=== PATIENT | female | born 1980 | race Caucasian/White ===

== ENCOUNTER 2016-06-12 02:09 | Emergency (ER) | payer OTHER ==
[~2016-06-12] VITALS: Ht 165.1 cm; Wt 56.8 kg
[~2016-06-12 02:09] MED LIST: CHROMAGEN,1 CAPSULE PO; NOHOMEMEDS
[2016-06-12 02:12] VITALS: BP 108/70
[2016-06-12 02:46] LABS: EOSINOPHIL (%) 0.6 % (0-5); EOSINOPHIL COUNT 0.1 K/uL (0-0.3); HEMATOCRIT 36.7 % (36.0-46.0); IMMATURE GRANULOCYTE (%) 0.2 % (0.0-0.7); IMMATURE GRANULOCYTE COUNT 0.4 K/uL; LYMPHOCYTE COUNT 1.9 K/uL (1.0-2.8); MCH 29.1 PG (29.0-34.0); MCHC 34.1 G/DL (30.0-36.0); MCV 85.5 FL (83-99); MEAN PLAT.VOLUME 10.2 uM^3 (9.5-12.4); MONOCYTE (%) 4.7 % (3-12); MONOCYTE COUNT 0.8 K/uL (0-0.8); NEUTROPHIL (%) 82.4 % (45-76); NEUTROPHIL COUNT 13.3 K/uL (1.8-6.4); PLATELET COUNT 187 K/uL (156-360); RBC DIS.WIDTH-CV 12.7 % (11.8-14.6); RBC DIS.WIDTH-SD 38.7 % (39-53); RED BLOOD COUNT 4.29 M/uL (3.80-5.20); WHITE BLOOD COUNT 16.1 K/uL (4.1-10.2)
[2016-06-12 02:53] LABS: CHLORIDE 104 mEq/L (99-109); POTASSIUM 4.1 mEq/L (3.7-5.4); SODIUM 141 mEq/L (136-147)
[2016-06-12 02:55] LABS: GLUCOSE 123 mg/dL (70-99)
[2016-06-12 02:56] LABS: ANION GAP 12 MEQ/L (2-14)
[2016-06-12 02:57] LABS: INTER. NORMALIZED RATIO 1.1; PROTHROMBIN TIME 10.8 (9.2-11.2); PTT 23.1 (25-32); TOTAL BILIRUBIN 0.7 mg/dL (0.0-1.0)
[2016-06-12 02:58] LABS: ALKALINE PHOSPHATASE 61 IU/L (3-129)
[2016-06-12 02:59] LABS: GFR ESTIMATE (CALCULATED) > 59 mL/min/
[2016-06-12 03:00] LABS: UREA NITROGEN (BUN) 25 mg/dL (9-23)
[2016-06-12 03:05] LABS: TROP-I INTERPRETATION NEGATIVE; TROPONIN-I < 0.01 ng/mL (0.0-0.30)
[2016-06-12 03:07] LABS: QUANTITATIVE HCG < 4.0 MIU/ML
[2016-06-12 03:37] LABS: HDL CHOLESTEROL 67 MG/DL (Desirable>=50); LDL CHOLESTEROL 65 mg/dL (Desirable<100); NON-HDL CHOLESTEROL 74 mg/dL (Desirable<160); TOTAL CHOLESTEROL 141 mg/dL (Desirable<200); TRIGLYCERIDES 45 MG/DL (Normal: <150)
[2016-06-12] MEDS ORDERED: ZOFRAN4 MG PO (03:59)
[2016-06-13 07:56] LABS: Estimated Average Glucose 103 mg/dL (70-123); HEMOGLOBIN A1c (GLYCOHEMOGLOB) 5.2 % HGB (Below 5.7)
== END 2016-06-12 04:45 | disposition left against medical advice (07) ==
LOC: EME 02:09
PROVIDERS: Emergency Medicine
DX: R51 Headache (principal); R10.9 Unspecified abdominal pain; R11.2 Nausea with vomiting, unspecified
CPT/HCPCS: 70450; 71010; 80053; 80061; 81003; 82945; 83036; 83605; 84157; 84484; 84702; 85025; 85610; 85730; 87070; 87205; 89051; 93005; J1885; J2405; J7030

== ENCOUNTER 2017-03-28 19:12 | Emergency (ER) | payer OTHER ==
[~2017-03-28] VITALS: Ht 160 cm; Wt 62.7 kg
[~2017-03-28 19:12] MED LIST changes: +ZOFRAN4 MG PO
[2017-03-28] MEDS ORDERED: MOTRIN600 MG PO (22:44)
[2017-03-28] MEDS ORDERED: REGLAN10 MG PO (22:44)
[2017-03-28 22:54] VITALS: BP 107/69
== END 2017-03-28 22:56 | disposition home or self-care (01) ==
LOC: EME 19:12
DX: R51 Headache (principal); Z88.0 Allergy status to penicillin; Z88.1 Allergy status to other antibiotic agents
CPT/HCPCS: 70450; 99281; 99284; J1885

== ENCOUNTER 2017-04-03 23:54 | Emergency (ER) | payer OTHER ==
[~2017-04-03] VITALS: Ht 157.5 cm; Wt 62.3 kg
[~2017-04-03 23:54] MED LIST changes: +MOTRIN600 MG PO; +REGLAN10 MG PO
[2017-04-04 01:54] LABS: HEMATOCRIT 35.9 % (36.0-46.0); MCH 29.4 PG (29.0-34.0); MCHC 33.7 G/DL (30.0-36.0); MCV 87.1 FL (83-99); MEAN PLAT.VOLUME 10.2 uM^3 (9.5-12.4); PLATELET COUNT 158 K/uL (156-360); RBC DIS.WIDTH-SD 40.8 % (39-53); RED BLOOD COUNT 4.12 M/uL (3.80-5.20); WHITE BLOOD COUNT 12.4 K/uL (4.1-10.2)
[2017-04-04 02:04] LABS: CHLORIDE 105 mEq/L (99-109); POTASSIUM 4.9 mEq/L (3.7-5.4); SODIUM 140 mEq/L (136-147)
[2017-04-04 02:06] LABS: GLUCOSE 111 mg/dL (70-99)
[2017-04-04 02:07] LABS: ANION GAP 11 MEQ/L (2-14)
[2017-04-04 02:08] LABS: TOTAL BILIRUBIN 0.6 mg/dL (0.0-1.0)
[2017-04-04 02:09] LABS: ALKALINE PHOSPHATASE 52 IU/L (3-129)
[2017-04-04 02:10] LABS: GFR ESTIMATE (CALCULATED) > 59 mL/min/
[2017-04-04 02:11] LABS: UREA NITROGEN (BUN) 22 mg/dL (9-23)
[2017-04-04 02:19] LABS: QUANTITATIVE HCG < 4.0 MIU/ML
[2017-04-04 03:25] LABS: LIPASE 12 U/L (1.0-51.0)
[2017-04-04 05:03] LABS: ADD MIUA? NO; BILIRUBIN NEGATIVE; BLOOD NEGATIVE; COLOR YELLOW ((YELLOW)); GLUCOSE (STRIP) NEGATIVE; KETONES NEGATIVE; LEUKOCYTES NEGATIVE; NITRITE NEGATIVE; PROTEIN (STRIP) NEGATIVE; SPECIFIC GRAVITY 1.016 (1.000-1.030); UCUL ADDED? NO; UROBILINOGEN 0.2 MG/DL (0.2-1.0)
[2017-04-04] MEDS ORDERED: ZOFRAN4 MG PO (06:03)
[2017-04-04 06:40] VITALS: BP 00/00
== END 2017-04-04 06:41 | disposition home or self-care (01) ==
LOC: EME 23:54
DX: K52.9 Noninfective gastroenteritis and colitis, unspecified (principal); Z97.5 Presence of (intrauterine) contraceptive device
CPT/HCPCS: 80053; 81003; 83690; 84702; 85027; 99281; 99285; J2405; J7030; S0028